=== PATIENT | female | born 1975 | race Caucasian/White ===

== ENCOUNTER 2018-03-31 20:58 | Emergency (ER) | payer OTHER ==
[~2018-03-31] VITALS: Ht 177.8 cm; Wt 63.6 kg
[2018-03-31 21:44] LABS: BASOPHILS # (AUTO) 0.02 x10^3/uL (0-0.1); BASOPHILS % (AUTO) 0 % (0-1); EOSINOPHILS # (AUTO) 0.08 x10^3/uL (0-0.4); EOSINOPHILS % (AUTO) 2 % (1-7); LYMPHOCYTES # (AUTO) 2.14 x10^3/uL (1-3.4); LYMPHOCYTES % (AUTO) 40 % (22-44); MD NO; MEAN CORPUSCULAR HGB CONC 33.9 g/dL (32.4-35.8); MEAN CORPUSCULAR VOLUME 97.3 fL (80-100); MEAN PLATELET VOLUME 8.5 fL (7.4-10.4); MONOCYTES # (AUTO) 0.38 x10^3/uL (0.2-0.8); MONOCYTES % (AUTO) 7 % (2-9); NEUTROPHILS # (AUTO) 2.68 x10^3/uL (1.8-6.8); NEUTROPHILS % (AUTO) 51 % (42-75); PLATELET COUNT 251 x10^3/uL (130-400); RED BLOOD COUNT 4.21 x10^6/uL (3.82-5.3); RED CELL DISTRIBUTION WIDTH 13.6 % (9.6-15.2)
[2018-03-31 21:56] LABS: ALANINE AMINOTRANSFERASE 20 U/L (12-78); ALBUMIN 3.6 g/dL (3.4-5.0); ANION GAP 8 mmol/L (5-15); CALCIUM 8.2 mg/dL (8.5-10.1); CHLORIDE 114 mmol/L (98-107); CREATININE 0.74 mg/dL (0.55-1.02); SALICYLATE LEVEL 3.7 mg/dL (2.8-20.0)
[2018-03-31 22:01] LABS: ALKALINE PHOSPHATASE 60 U/L (45-117); BILIRUBIN,TOTAL 0.2 mg/dL (0.2-1.0); TOTAL PROTEIN 7.1 g/dL (6.4-8.2); TROPONIN I < 0.015 ng/mL (0.000-0.045)
[2018-03-31 22:08] LABS: ACETAMINOPHEN < 2 mcg/mL (10-30)
[2018-03-31 22:37] LABS: HCG UR SG 1.021 (1.003-1.030); MICROSCOPIC NOT IND
[2018-03-31 22:43] LABS: CULTURE INDICATED? NO
[2018-03-31 22:51] LABS: AMPHETAMINE SCREEN, URINE Negative (Negative); BARBITURATE SCREEN, URINE Negative (Negative); BENZODIAZEPINE SCREEN, URINE Negative (Negative); CANNABINOID SCREEN, URINE Negative (Negative); COCAINE SCREEN, URINE Negative (Negative); METHADONE SCREEN, URINE Negative (Negative); OPIATE SCREEN, URINE Negative (Negative)
[2018-03-31 23:54] VITALS: BP 110/68
== END 2018-03-31 23:55 | disposition home or self-care (01) ==
LOC: ED 23:49
DX: F10.120 Alcohol abuse with intoxication, uncomplicated (principal); W01.0XXA Fall on same level from slipping, tripping and stumbling without subsequent striking against object, initial encounter; Y93.89 Activity, other specified; Y99.8 Other external cause status; Y92.89 Other specified places as the place of occurrence of the external cause
CPT/HCPCS: 36415; 80053; 80307; 80329; 81003; 81025; 84484; 85025; 93005; 99285; G0480

== ENCOUNTER 2018-07-14 01:05 | Emergency (ER) | payer OTHER ==
[~2018-07-14] VITALS: Ht 177.8 cm; Wt 73.9 kg
[2018-07-14 01:08] VITALS: BP 112/66
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
--- NOTE | 2018-07-14 02:09 | NUR ---
CALLED [facility], OFFICER JASPREET RESPONDED TO THE CALL AND FILED A REPORT AT THE HOUSE.
--- NOTE | 2018-07-14 02:44 | NUR ---
PT'S CHART UP FOR RECHECK
== END 2018-07-14 03:13 | disposition home or self-care (01) ==
LOC: ED 02:45
DX: R07.89 Other chest pain (principal); S09.8XXA Other specified injuries of head, initial encounter; S09.93XA Unspecified injury of face, initial encounter; Y04.8XXA Assault by other bodily force, initial encounter; Y93.89 Activity, other specified; Y99.8 Other external cause status; Y92.009 Unspecified place in unspecified non-institutional (private) residence as the place of occurrence of the external cause
CPT/HCPCS: 71046; 99283